=== PATIENT | male | born 1995 | race Caucasian/White ===

== ENCOUNTER 2017-10-19 07:20 | Inpatient (IN) ==
[2017-10-19] MEDS ORDERED: Sod Chloride 0.9% Inj 1,000 ML IV.SIG ONE ×2 (07:46→09:26)
[2017-10-19] MEDS ORDERED: Morphine Inj 4 MG/ML Vial IV.PUSH ONE ×2 (07:46→09:26)
--- NOTE | 2017-10-19 07:52 | ED ---
HPI General Chief complaint: Abdominal Pain Stated complaint: Abm pain Time Seen by Provider: 10/19/17 07:39 Source: patient and RN notes reviewed Mode of arrival: ambulatory History of Present Illness HPI narrative: 22yM presenting with abdominal pain. The patient states that yesterday afternoon he began to have gradual-onset epigastric/ periumbilical abdominal pain which he describes as "aching", constant, worse with movement and somewhat improved by rest, associated with nausea. Overnight, he says that the pain worsened and is now worst in the RLQ. Denies fever, vomiting, diarrhea , or dysuria. Family history significant for father with DM and mother with HTN. Related Data Home Medications Medication Instructions Recorded Confirmed No Known Home Medications 10/19/17 10/19/17 Allergies Allergy/AdvReac Type Severity Reaction Status Date / Time No Known Allergies Allergy Verified 10/19/17 07:42 Review of Systems ROS: all other systems reviewed are negative Constitutional Denies fever(s) Eyes Denies blurry vision ENT Denies nasal congestion Cardiovascular Denies chest pain Respiratory Denies cough Gastrointestinal Reports abdominal pain and Reports nausea Genitourinary Denies dysuria Musculoskeletal Denies back pain Neurologic Denies confusion Psychiatric Denies confusion PMFSH History History Provided By: Patient Medical History Medical History No significant medical problems (Acute) Surgical History Surgical History History of ear surgery (Acute) Social History Social History Substance History: Active Abuse Second Hand Smoke Exposure: No Smoking Status: Former smoker How Often Do You Have a Drink Containing Alcohol: 2 to 4 times a month Recent Travel in [facility] [[email or web address]] within the Last 8 Weeks: No Recent Out of Country Travel within the Last 8 Weeks: No Substance Abuse Detail Marijuana: Substance Use Status: Active Route Used Substance Abuse: Inhalation Reason for Use: Calm Down and Feels Good Immunization History Tetanus Immunization: >5 Years Hx Influenza Vaccine This Season: No Exam Const General: healthy appearing and no acute distress HENMT Head: normocephalic and atraumatic Face and sinus: normal facial exam Eyes General: appearance normal, both eyes and all related structures Pupils: PERRL Chest Chest: normal inspection of the chest Resp Effort & Inspection: normal respiratory effort Auscultation: no rhonchi and no wheezes Cardio Rate: regular rate Rhythm: regular rhythm GI Other: Abdomen soft, non-distended, mild periumbilical tenderness and moderate RLQ/ McBurney's point tenderness, no guarding or rebound, negative Rovsing's sign Skin General: no rashes or lesions noted Neuro General: alert, awake, oriented x3 and no focal motor deficits Psych Affect: normal affect Course Consultations Consultation #1: Call placed to Dr. Ruiz (gen surgery), awaiting call back. I informed the patient of the results of his labs and imaging and need for antibiotics/ surgery. He has been NPO since 6 PM last night. Time: 09:39 Consultation #2: 2nd call placed to Dr. Ruiz's office/ cell phone. Time: 10:13 Initial Documented Vital Signs Temperature 98.6 F 10/19/17 07:32 Pulse Rate 97 H 10/19/17 07:32 Respiratory Rate 16 10/19/17 07:32 Blood Pressure 143/77 H 10/19/17 07:32 Pulse Oximetry 99 10/19/17 07:32 Last Documented Vital Signs Temperature 98.1 F 10/19/17 09:36 Pulse Rate 89 10/19/17 09:36 Respiratory Rate 16 10/19/17 09:40 Blood Pressure 110/67 10/19/17 09:36 Pulse Oximetry 99 10/19/17 09:36 Medical Decision Making [facility] Narrative Medical decision making narrative: Assessment: 22yM presenting with abdominal pain Plan: Pain control, antiemetics, IV fluids Labs, UA CT abd/ pelvis Addendum: Case discussed with Dr. Ruiz at 10:15 AM; OR cannot take the patient until 7 PM at the earliest. Patient to be kept NPO and on IV fluids for now, obs level of care. Differential Diagnosis Differential Diagnosis: Differential diagnosis includes, but is not limited to: appendicitis, pancreatitis, cholelithiasis, gastritis, PUD, colitis Lab Data Lab results reviewed: Yes I reviewed the patient's lab results. Result diagrams: 10/19/17 07:50 10/19/17 07:50 Lab Results 10/19/17 10/19/17 Range/Units 07:50 07:50 WBC 17.8 H (4.0-11.0) th/mm3 RBC 5.29 (4.50-5.90) mil/mm3 Hgb 16.0 (13.0-17.0) gm/dL Hct 46.1 (39.0-51.0) % MCV 87.1 (80.0-100.0) fL MCH 30.3 (27.0-34.0) pg MCHC 34.8 (32.0-36.0) % RDW 13.2 (11.6-17.2) % Plt Count 283 (150-450) th/mm3 MPV 8.0 (7.0-11.0) fL Neut % (Auto) 78.5 H (16.0-70.0) % Lymph % (Auto) 13.3 (9.0-44.0) % Patrick % (Auto) 7.4 (0.0-8.0) % Eos % (Auto) 0.3 (0.0-4.0) % Baso % (Auto) 0.5 (0.0-2.0) % Neut # (Auto) 14.0 H (1.8-7.7) th/mm3 Lymph # (Auto) 2.4 (1.0-4.8) th/mm3 Patrick # (Auto) 1.3 H (0.0-0.9) th/mm3 Eos # (Auto) 0.1 (0.0-0.4) th/mm3 Baso # (Auto) 0.1 (0.0-0.2) th/mm3 WBC Differential . Differential Comment Auto diff final Sodium 137 (136-145) meq/L Potassium 4.2 (3.5-5.1) meq/L Chloride 103 (98-107) meq/L Carbon Dioxide 29.2 (21.0-32.0) meq/L Anion Gap 5 (5-15) meq/L BUN 11 (7-18) mg/dL Creatinine 0.94 (0.60-1.30) mg/dL Estimated GFR Greater than 89 (>89) mL/min Random Glucose 103 (74-106) mg/dL Calcium 9.3 (8.5-10.1) mg/dL Total Bilirubin 0.7 (0.2-1.0) mg/dL AST 24 (15-37) U/L ALT 67 (12-78) U/L Alkaline Phosphatase 95 (45-117) U/L Total Protein 8.5 H (6.4-8.2) g/dL Albumin 4.3 (3.4-5.0) g/dL Lipase 93 (73-393) U/L Imaging Data Radiologist's impression: Abdomen/Pelvis CT 10/19/17 07:46 CONCLUSION: 1. Mildly dilated appendix suggesting early acute appendicitis. Discharge Plan Discharge Disposition Patient Disposition: 30 Still Patient Discharge Condition Condition: Stable Discharge Details Diagnosis: Acute appendicitis Physicians Team ED Provider: Chantal Dyer Primary Care Provider: Primary Care Physici,No Rxs /Orders / Referrals /Forms Prescriptions: No Action No Known Home Medications RF: 0 Status ED Status: With Doctor
[2017-10-19 08:10] LABS: Baso # (Auto) 0.1 th/mm3 (0.0-0.2); Baso % (Auto) 0.5 % (0.0-2.0); Eos # (Auto) 0.1 th/mm3 (0.0-0.4); Eos % (Auto) 0.3 % (0.0-4.0); Hematocrit 46.1 % (39.0-51.0); Lymph # (Auto) 2.4 th/mm3 (1.0-4.8); Lymph % (Auto) 13.3 % (9.0-44.0); Mean Corpuscular HGB Conc 34.8 % (32.0-36.0); Mean Corpuscular Hemoglobin 30.3 pg (27.0-34.0); Mean Corpuscular Volume 87.1 fL (80.0-100.0); Mono # (Auto) 1.3 th/mm3 (0.0-0.9); Mono % (Auto) 7.4 % (0.0-8.0); Neut % (Auto) 78.5 % (16.0-70.0); Platelet Count 283 th/mm3 (150-450); Red Blood Count 5.29 mil/mm3 (4.50-5.90); Red Cell Distribution Width 13.2 % (11.6-17.2); White Blood Count 17.8 th/mm3 (4.0-11.0)
[2017-10-19 08:24] LABS: Alanine Aminotransferase 67 U/L (12-78); Albumin 4.3 g/dL (3.4-5.0); Anion Gap 5 meq/L (5-15); Aspartate Aminotransferase 24 U/L (15-37); Blood Urea Nitrogen 11 mg/dL (7-18); Calcium 9.3 mg/dL (8.5-10.1); Carbon Dioxide 29.2 meq/L (21.0-32.0); Chloride 103 meq/L (98-107); Glomerular Filtration Rate Greater Than 89 mL/min (>89); Glucose,Random 103 mg/dL (74-106); Lipase 93 U/L (73-393); Potassium 4.2 meq/L (3.5-5.1); Sodium 137 meq/L (136-145)
[2017-10-19 08:27] LABS: Alkaline Phosphatase 95 U/L (45-117); Total Protein 8.5 g/dL (6.4-8.2)
--- NOTE | 2017-10-19 09:22 | CT ---
EXAM DATE: 10/19/2017 8:18 AM EDT AGE/SEX: 22 years / Male INDICATIONS: Right lower quadrant pain. CLINICAL DATA: This is the patient's initial encounter. Patient reports that signs and symptoms have been present for 1 day and indicates a pain score of 8/10. MEDICAL/SURGICAL HISTORY: None. None. ORAL CONTRAST: No oral contrast ingested. RADIATION DOSE: 13.31 CTDI (mGy) COMPARISON: No prior exams available for comparison. TECHNIQUE: Multiple contiguous axial images were obtained through the abdomen and pelvis following b olus infusion of 92 ml Omnipaque 350 (iohexol) nonionic water-soluble contrast as a single exam dos e. No oral contrast ingested. Using automated exposure control and adjustment of the mA and/or kV ac cording to patient size, radiation dose was kept as low as reasonably achievable to obtain optimal di agnostic quality images. DICOM format image data is available electronically for review and comparis on. FINDINGS: Lower Lungs: The visualized lower lungs are clear. Liver: The liver has a homogeneous density without space-occupying lesion. There is no dilation of th e biliary tree. Spleen: Homogeneous density without enlargement. Pancreas: Unremarkable without mass or calcification. Kidneys: Normal in size and shape. No evidence of mass or hydronephrosis. Adrenal Glands: Unremarkable. Aorta: The aorta and proximal iliac vessels are grossly unremarkable without aneurysmal dilation. Bowel/Mesentery: The appendix is mildly dilated and fluid-filled. It measures 12 mm in diameter. A t iny calcified appendicolith seen at the base. No significant stranding of the periappendiceal fat. Th e remaining bowel structures are unremarkable. Abdominal Wall: Intact. Retroperitoneum: No evidence of adenopathy in the retrocrural, para-aortic, or deep pelvic regions. Bladder: Contours are smooth. Reproductive Organs: No abnormal masses or calcifications seen. Inguinal: The inguinal region is unremarkable without evidence of adenopathy. Bony Structures: Unremarkable. CONCLUSION: 1. Mildly dilated appendix suggesting early acute appendicitis. Electronically signed by: Tony Echevarria MD 10/19/2017 9:21 AM EDT
[2017-10-19] MEDS ORDERED: Ciprofloxacin 400 MG/200 ML 400 MG/200 ML PIGGYBACK IV.SIG ONE ×2 (09:36→21:47)
[2017-10-19] MEDS ORDERED: Sod Chloride 0.9% Inj 1,000 ML IV.CONT SCH (10:30)
[2017-10-19 11:36] LABS: Bilirubin,Urine Negative (Negative); Clarity,Urine Clear (Clear); Color,Urine Straw (Yellw/Straw); Glucose,Urine (UA) Negative (Negative); Leukocyte Esterase,Urine Negative (Negative); Nitrite,Urine Negative (Negative); Specific Gravity,Urine 1.033 (1.002-1.035)
[2017-10-19] MEDS ORDERED: Lidocaine PF 1% Inj 5 ML Syringe INFILTRATN ONE (12:00)
[2017-10-19] MEDS ORDERED: Labetalol HCl Inj 100 MG/20 ML Vial IV.CONT ONE (12:00)
[2017-10-19] MEDS: Morphine Inj 4 MG/ML Vial IV.PUSH PRN ×2 (14:30→18:38)
--- NOTE | 2017-10-19 16:44 | MH ---
cc: Anthony Lynch MD DATE OF ADMISSION: 10/19/2017 DATE: 10/19/2017 CHIEF COMPLAINT: Abdominal pain, acute appendicitis. HISTORY OF PRESENT ILLNESS: The patient is a 22-year-old male who presents with acute onset abdominal pain. He states the pain started yesterday, periumbilical, gradually radiated to the right lower quadrant. He notes the pain as an 8/10, 9/10 at its worst, some improvement with IV pain medication. The patient denies any fevers or chills. Does admit to nausea associated with the pain. He states the pain was better with rest, worse with movement. He came to the emergency department. Further evaluation including WBC of 17,[address] scan showed acute appendicitis. Therefore, decision was made for surgical consultation. The patient states he has never had pain quite like this before. He states he is otherwise relatively in good health. PAST MEDICAL HISTORY: No past medical history. PAST SURGICAL HISTORY: Ear surgery. ALLERGIES: NO KNOWN DRUG ALLERGIES. MEDICATIONS: See EMR. FAMILY HISTORY: Mother with hypertension. Father with diabetes. SOCIAL HISTORY: Occasional ETOH, positive occasional THC. Denies IVDA. REVIEW OF SYSTEMS: GENERAL: Denies fevers, chills. HEENT: Denies eye pain, ear pain. NECK: Denies swelling or pain. LUNGS: Denies cough or wheeze. HEART: Denies palpitations or chest pain. ABDOMEN: Complains of nausea and abdominal pain. GENITOURINARY: Denies dysuria or hematuria. ENDOCRINE SKIN: Denies polyuria or polydipsia. INTEGUMENT: Denies any vascular lesions. EXTREMITIES: Denies any arthralgias or myalgias. PSYCH: Denies change in mood or judgment. PHYSICAL EXAMINATION: VITAL SIGNS: Temperature 98.6, pulse 97, respirations 16, blood pressure 143/77, saturation 99%. GENERAL: In no acute distress. HEENT: Pupils equal, round, reactive. NECK: Supple. Trachea midline. LUNGS: Clear to auscultation, bilateral expansion. HEART: S1, S2. Regular rate and rhythm. ABDOMEN: Soft, nontender, nondistended. LUNGS: Clear to auscultation. HEART: S1, S2. ABDOMEN: Soft. Positive tenderness to palpation in the right lower quadrant. Positive rebound localized. Positive Rovsing sign. EXTREMITIES: Warm and well perfused. NEUROLOGIC: GCS 15, 5/5 motor in all extremities. PSYCHIATRIC: Appropriate mood, appropriate insight. LABORATORY AND DIAGNOSTIC DATA: WBC 17.8, hemoglobin 16, hematocrit 46.1, platelets 283. Sodium 137, potassium 4.2, chloride 103, BUN 11, creatinine 0.9, total bilirubin 0.7, AST 24, ALT 67, lipase 93. IMAGING STUDIES: CT reviewed by myself showing acute appendicitis. No free fluid. No free air. ASSESSMENT: The patient is a 22-year-old male with acute onset of abdominal pain. CT findings consistent with appendicitis. PLAN: After a full clinical, radiologic and laboratory workup, the patient with the above-named issue. At this point, we will plan to take the patient to the operating room for laparoscopic appendectomy. Discussed with the patient in detail. He understands and agrees. The patient needs IV antibiotics, pain control, IV fluids. The patient will be n.p.o. MD ELVA Grant/SHRUTI , 04:12 PM , 04:21 PM
[2017-10-19] MEDS ORDERED: Bupivacaine/Epinephrine Inj 0.25% 50 ML Vial ONE (21:39)
--- NOTE | 2017-10-19 22:49 | P.OP ---
- Preoperative Diagnosis (1) Acute appendicitis - Postoperative Diagnosis (1) Acute appendicitis Date of procedure: 10/19/17 Procedure: lap appy Anesthesia: GETA Surgeon: Anthony Lynch MD Estimated blood loss (mL): 5 Pathology: other (appendix) Operation and Findings: inflamed non perf appy
[2017-10-19] MEDS ORDERED: fentaNYL Citrate Inj 100 MCG/2 ML Ampul ONE (23:20)
[2017-10-19] MEDS ORDERED: *morphine SULFATE 4 MG/ML PERIprocedure ONLY ONE (23:26)
[2017-10-20] MEDS: Morphine Inj 4 MG/ML Vial IV.PUSH PRN (04:59)
[2017-10-20] MEDS ORDERED: Pantoprazole Inj 40 MG Vial IV.PUSH SCH (09:00)
[2017-10-20] MEDS ORDERED: Ciprofloxacin 400 MG/200 ML 400 MG/200 ML PIGGYBACK IV.SIG ONE (10:14)
--- NOTE | 2017-10-20 10:14 | P.PNGS ---
Subjective Patient reports: feels better, no flatus Physical Exam Vital signs: Vital Signs 10/19/17 10:17 10/19/17 10:55 10/19/17 11:15 Temperature 98.1 F 98 F 98.7 F Pulse Rate 86 89 95 H Respiratory Rate 16 16 15 Blood Pressure 120/78 122/77 145/75 H Pulse Oximetry 100 98 10/19/17 16:00 10/19/17 20:00 10/19/17 23:14 Temperature 98.2 F 98.8 F 98.3 F Pulse Rate 90 84 94 H Respiratory Rate 16 15 15 Blood Pressure 130/76 147/72 H 145/80 H Pulse Oximetry 99 97 99 10/19/17 23:15 10/19/17 23:30 10/19/17 23:45 Temperature 98.3 F Pulse Rate 90 89 86 Respiratory Rate 12 13 16 Blood Pressure 144/77 H 149/70 H 150/67 H Pulse Oximetry 99 97 97 10/20/17 00:20 10/20/17 01:35 10/20/17 04:33 Temperature 98.2 F 97.9 F Pulse Rate 80 109 H 81 Respiratory Rate 16 16 Blood Pressure 140/68 145/65 H Pulse Oximetry 98 97 100 Intake & Output 10/19/17 10/20/17 10/20/17 18:59 06:59 18:59 Intake Total 2926 / 2926 980 / 980 Output Total Balance 2926 / 2926 970 / 970 Weight 90.718 kg Intake: IV 2926 / 2926 NS Inj 1,000 ML @ 84 mls/hr IV. 626 / 626 CONT .[id number] [facility] Rx#:[id number] Cipro 400 MG/200 ML Inj 400 mg 200 / 200 In 200 ml @ 200 mls/hr IV.SIG ONCE ONE Rx#:[id number] NS Inj 1,000 ML @ Wide Open IV. 1999 SIG BOLUS ONE Rx#:[id number] Flagyl 500 MG Inj 100 ML @ 100 100 / 100 mls/hr IV.SIG ONCE ONE Rx#: [id number] Oral 480 / 480 Anesthesia Amount 500 / 500 Output: Estimated Blood Loss 10 Other: # Voids 1 2 # Bowel Movements 1 Weight On Admission 90.718 kg - Constitutional no acute distress - Routine Respiratory Exam Present: CTA bilaterally - Routine Cardiovascular Exam Present: RRR - Routine Abdominal Exam Present: soft (incisional tenderness) Assessment and Plan - Plan pod 1 lap appy PLAN Reg soft diet pain control po d/c planning today
[2017-10-20] MEDS ORDERED: Docusate Sodium 100 MG Capsule PO ONE (10:16)
--- NOTE | 2017-10-20 10:28 | MP ---
cc: Anthony Lynch MD DATE OF OPERATION: 10/19/2017 PREOPERATIVE DIAGNOSIS: Acute appendicitis. POSTOPERATIVE DIAGNOSIS: Acute appendicitis. PROCEDURE PERFORMED: Laparoscopic appendectomy. SURGEON: Anthony Lynch MD PATIENT PLACEMENT COORDINATOR: None. ANESTHESIA: GETA. IV FLUIDS: See anesthesia sheet. ESTIMATED BLOOD LOSS: 5 mL. DRAINS: None. COMPLICATIONS: None: WOUND CLASSIFICATION: Clean/contaminated. SPECIMENS: Appendix. FINDINGS: A distended, nonperforated appendix. INDICATIONS: The patient is a 22-year-old male who presents with acute onset of abdominal pain. The patient noted to have further workup including a CT scan showing acute appendicitis. Therefore, operative intervention indicated. DETAILS OF THE PROCEDURE: The patient was taken to the operating suite, placed in a supine position. He was prepped and draped in the usual sterile fashion after induction of general endotracheal anesthesia. A brief timeout done stating correct patient, procedure, and surgical site. We were all in agreement with this. Attention first directed to the umbilicus where local anesthetic injected. A small stab kristina incision made with an 11 blade. The 5 mm Optiview scope and trocar were done to enter the abdomen safely. On cursory inspection, no evidence of injury. Two other ports placed, including a 5 mm suprapubic and a left lower quadrant 12 mm port. The patient was placed in Trendelenburg, airplaned to the left. Right upper quadrant was explored. The appendix noted to be somewhat distended and indurated. The appendix was grasped. A window made in the base of the mesoappendix. The base of the appendix was transected with a ANGELINE 35 load. The mesoappendix was also mobilized and transected with a ANGELINE at 35 load. Bleeding points were controlled with electro Bovie electrocautery and SNoW anticoagulant. The left lower quadrant portal was closed with a suture passer closure device after the appendix was removed in the Endo Catch bag from the abdomen. The abdomen desufflated and the 5 mm ports were closed with 4-0 Monocryl, along with a 12 mm closed with 4-0 Monocryl. Sterile dressing was placed. The patient tolerated the procedure well. There were no intraoperative complications. All lap and instrument counts were correct at the end of the procedure. The patient was extubated and taken stable to the PACU. MD CYNTHIA Grant , 10:11 AM , 10:19 AM
[2017-10-20 12:01] VITALS: PULSE 82; RESP 20; TEMP 98.1; O2SAT 99
[2017-10-20 13:15] VITALS: BP 150/69
== END 2017-10-20 14:20 | disposition home or self-care (01) ==
LOC: NEPC 07:20 → NEDA 07:20 → H6YA 11:10
PROVIDERS: ADMIT Surgery Trauma Surgery; ATTEND Surgery Trauma Surgery
PROC: LAPAPPY (ICD-10-PCS; 2017-10-19 21:53)